=== PATIENT | male | born 1975 | race Two or more races ===

== ENCOUNTER 2024-12-27 18:20 | Emergency (ER) | payer MEDICAID, OTHER ==
[~2024-12-27] VITALS: Ht 160 cm; Wt 59.0 kg
--- NOTE | 2024-12-27 18:44 | ED.PDOC ---
Psychiatric HPI Comments 49-year-old male with a history of suicide ideation, diabetes, schizophrenia, and alcohol abuse was brought in by ambulance with a chief complaint of suicidal ideation. Patient notes being depressed for 2x months, and states he had a knife plan to use it on himself, but denies any homicidal ideation. Notes of minor auditory hallucinations at this time. Patient denies any pain, lacerations, or any other associated symptoms, modifiers at this time. Chief Complaint: Suicidal Time Seen by MD: 18:39 Reviewed Notes: Nurses Notes, Tower Operator Notes, Medications, Allergies Information Source: Patient, Emergency Med Personnel Mode of Arrival: EMS Severity of Pain: Mild Severity of Mental Status: Severe Severity of Symptoms: Mild Timing: Months Duration: Since onset Prehospital treatment: None Presents with: Depression, Anxiety, Unclear Thinking, Suicidal Ideation, Alcohol Intoxication Ingestion: None Circumstance: None Current substance abuse: Unknown Stressors: Work, Family, Relationships History of: Depression, Anxiety, Schizophrenia, Bipolar, Suicidal Attempt Quality: Hopelessness, Hallucinations Location: None Location of pain or injury: None Associated signs and symptoms: Depression, Hopeless, Anxiety, Hallucinations Vital Signs Vital Signs Date Time Temp Pulse Resp B/P (MAP) Pulse Ox O2 Delivery O2 Flow Rate FiO2 12/28/24 19:33 Room Air* 0 21 12/28/24 19:30 97.8 99 18 129/84 (99) 100 97.8 Physical Exam PHYSICAL EXAM: General: Awake, alert and oriented. No acute distress. Patient appears disheveled and unkempt Skin: Skin in warm, dry and intact without rashes or lesions. HEENT: The head is normocephalic and atraumatic. Conjunctivae are clear without exudates or hemorrhage. Sclera is non-icteric. Neck: Normal range of motion. No JVD. Cardiac: Regular rate Respiratory: No signs of respiratory distress. No Stridor. Extremities: Upper and lower extremities are atraumatic in appearance without de formity. Neurological: The patient is awake, alert and oriented to person, place, and time with normal speech. Speech is clear. There is no facial asymmetry. Psychiatric: Patient has depressed mood, suicidal ideation Review of Systems: REVIEW OF SYSTEMS: No fever, no chills, or fatigue HEENT: No sore throat, no earache, no congestion, no neck pain. Cardiac: No chest pain. No palpitations. Lungs: No shortness of breath, no cough. GI: No nausea, no vomiting, no diarrhea, no constipation, no abdominal pain : No dysuria, frequency, or urgency. No hematuria. Musculoskeletal: No joint pain , no joint swelling, no extremity edema. Skin: No rash, no itching. Neuro: No headache, no dizziness, no weakness Psychiatric: Suicidal ideation, auditory hallucinations Past Medical History PAST MEDICAL HISTORY: Depression, DM, Schizophrenia Surgical History: Denies all surgeries Family History Family History: Unknown Social History Smoker: Non-Smoker Alcohol: Heavy Drugs: Denies Drug Use Lives In: Home Was a procedure done? Was a procedure done?: No Psych Differential Dx Psych. Differential Dx: Anxiety, Bipolar Disorder, Depression, Hopeless, Panic Disorder, Schizoprenia, Suicidal OD Differential Dx: Alcohol Abuse, Anxiety, Bipolar Disorder, Depression, Drug Overdose, Encephalopathy, Hallucinations, Panic Disorder, Schizophrenia, Substance Abuse, Suicidal Attempt Suicidal Differential Dx: Alcohol Abuse, Anxiety, Bipolar Disorder, Depression, Schizoprenia, Substance Abuse Intoxication Differential Dx: Hallucinations, Dehydration, Depression, Encephal opathy, Intoxication, Medical Noncompliance, Schizophrenia, Substance Abuse Disorder X-Ray, Labs, Meds, VS Vital Signs Date Time Temp Pulse Resp B/P (MAP) Pulse Ox O2 Delivery O2 Flow Rate FiO2 12/28/24 19:33 Room Air* 0 21 12/28/24 19:30 97.8 99 18 129/84 (99) 100 97.8 12/28/24 14:26 94 16 131/88 12/28/24 14:25 94 16 131/88 (102) 100 12/28/24 11:17 83 16 116/80 12/28/24 11:03 97.3 83 16 116/80 (92) 100 97.3 12/28/24 09:39 Room Air* 0 21 12/27/24 21:47 91 18 97 Room Air* 0 21 12/27/24 21:47 98.6 91 18 103/57 (72) 97 98.6 12/27/24 18:25 98.8 114 18 131/81 98 98.8 Lab Test 12/28/24 12:25 12/27/24 21:43 12/27/24 19:05 Range/Units Urine Color Light-yellow Yellow Urine Clarity Clear Clear Urine pH 6.5 5.0-9.0 Urine Specific [place] 1.038 H 1.001-1.035 Urine Protein Negative Negative Urine Ketones Trace Negative Urine Blood Negative Negative /uL Urine Nitrite Negative Negative Urine Bilirubin Negative Negative Urine Urobilinogen 2 H Negative mg/dL Urine Leukocyte Esterase Negative Negative /uL Urine RBC <1 0 - 3 /hpf Urine Microscopic WBC 4 H 0-3 /HPF Urine Squamous Epithelial Cells None seen <5 /hpf Urine Bacteria None seen None Seen /hpf Urine Glucose 4+ H Normal mg/dL Urine Opiates Screen Neg NEGATIVE Urine Fentanyl Screen Neg NEGATIVE Urine Barbiturates Screen Neg NEGATIVE Urine Phencyclidine Screen Neg NEGATIVE Urine Amphetamines Screen Neg NEGATIVE Urine Benzodiazepines Screen Neg NEGATIVE Urine Cocaine Screen Neg NEGATIVE Urine Cannabinoids Screen Neg NEGATIVE POC Glucose 261 H 70-106 mg/dl White Blood Count 5.7 4.4-10.8 10^3/uL Red Blood Count 5.12 4.5-5.90 10^6/uL Hemoglobin 11.0 L 13.5-17.5 g/dL Hematocrit 35.7 L 41.0-53.0 % Mean Corpuscular Volume 69.7 L 80.0-100.0 fL Mean Corpuscular Hemoglobin 21.5 L 28.0-32.0 pg Mean Corpuscular Hemoglobin Concent 30.8 L 32.0-36.0 g/dL Red Cell Distribution Width 21.3 H 11.8-14.3 % Platelet Count 392 140-450 10^3/uL Mean Platelet Volume 7.6 6.9-10.8 fL Neutrophils (%) (Auto) 72.2 37.0-80.0 % Lymphocytes (%) (Auto) 19.0 10.0-50.0 % Monocytes (%) (Auto) 8.1 0.0-12.0 % Eosinophils (%) (Auto) 0.0 0.0-7.0 % Basophils (%) (Auto) 0.7 0.0-2.0 % Neutrophils # (Auto) 4.1 1.6-8.6 10 ^3/uL Lymphocytes # (Auto) 1.1 0.4-5.4 10 ^3/uL Monocytes # (Auto) 0.5 0-1.3 10 ^3/uL Eosinophils # (Auto) 0 0-0.8 10 ^3/uL Basophils # (Auto) 0 0-0.2 10 ^3/uL Nucleated Red Blood Cells 0.1 % Sodium Level 138 136-145 mmol/L Potassium Level 2.6 L 3.5-5.1 mmol/L Chloride Level 97 L 98-107 mmol/L Carbon Dioxide Level 23 20-31 mmol/L Anion Gap 18 H 5-15 Blood Urea Nitrogen 17 9-23 mg/dL Creatinine 1.23 0.700-1.30 mg/dL Glomerular Filtration Rate Calc 73 >90 mL/min BUN/Creatinine Ratio 13.8 10.0-20.0 Serum Glucose 290 H 74-106 mg/dL Calcium Level 8.7 8.7-10.4 mg/dL Plasma/Serum Blood Alcohol 363.4 H <10 mg/dL Time of 1ST Reevaluation: 19:10 Reevaluation 1ST: Unchanged Patient Education/Counseling: Diagnosis, Treatment, Need For Follow Up Family Education/Counseling: No Family Present Departure 1 Departure Time of Disposition: 20:52 Impression: Primary Impression: Depression Additional Impression: Suicidal ideation [facility] Condition: Serious Comments @[address] Kent , psychiatry recommendation is transfer for inpatient psych admission. Start olanzapine 5 mg b.i.d. and trazodone 50 mg q.h.s. Critical Care Note Critical Care Time?: No Stability Stability form required: No Heart Score Heart Score: Heart Score Response (Comments) Value History N/A 0 EKG N/A 0 Age N/A 0 Risk Factors N/A 0 Troponin N/A 0 Total 0 I personally scribed for SILVINA SEAY MD ([email or web address]) on 12/27/24 at 18:44. Electronically submitted by Deon Wilson ([email or web address]). SILVINA SEAY MD Dec 27, 2024 18:44
[2024-12-27 19:52] LABS: Hematocrit 35.7 % (41.0-53.0); Hemoglobin 11.0 g/dL (13.5-17.5); Mean Corpuscular Hemoglobin 21.5 pg (28.0-32.0); Mean Corpuscular Volume 69.7 fL (80.0-100.0); Nucleated Red Blood Cells % 0.1 %
[2024-12-27 20:01] LABS: Sodium 138 mmol/L (136-145)
[2024-12-27 20:02] LABS: Anion Gap 18 (5-15); Calcium 8.7 mg/dL (8.7-10.4); Carbon Dioxide 23 mmol/L (20-31)
[2024-12-27 20:07] LABS: BUN/Creatinine Ratio 13.8 (10.0-20.0); Blood Urea Nitrogen 17 mg/dL (9-23)
[2024-12-27 20:08] LABS: Chloride 97 mmol/L (98-107); Glucose 290 mg/dL (74-106); Potassium 2.6 mmol/L (3.5-5.1)
--- NOTE | 2024-12-27 20:50 | DVHINCON2 ---
Date of Service if different f: Dec 27, 2024 Time of Service: 20:31 Consult Consult Note PSYCHIATRY ED NEW CONSULT HPI: 49 yo pt with PPH of schizoaffective disorder and ETOH use disorder presents to ED BIBA for safety, psychiatric stabilization, and possible med initiation/optimization in setting of med noncompliance, depression, AH, and passive SI. Psychiatry consulted for safety evaluation and recommendations in context of current presentation Pt reports over past several weeks/months experiencing worsening depressed mood, hopelessness/helplessness, negative thoughts, loss of interest, decreased energy, poor sleep/appetite, low self-worth, amotivation, some decline in self-care and anxiety symptoms to include racing/intrusive thoughts, paranoia of being followed, vague NC/NT AH, feeling tensed, and irritability although some symptoms appear chronic in nature. Also intermittent SI that are worsening with plan to stab self with knife resulting in some interference with daily functioning. Also self medicating with recent increase in ETOH use. Identifies primary stress as unemployment, lack of meaningful relationships, limited support system, etc. Denies HI/VH/catatonic/perceptual disturbances Does not have active outpt MH services established at this time although has sought outpt MH services in past. Currently not on any psychotropic agents for past several months, prior psych med trials include olanzapine and trazodone Admits to daily ETOH use over past several months including recent increase in ETOH consumption, denies THC or IDU prior to admission. Some hx of ETOH dependency noted Single, one adult son with limited contact, unemployed, lives with roommates, limited support system noted (immediate family) Unknown trauma hx. Denies FH of psych hospitalizations, suicide attempts, or completed suicides No acute medical/chronic pain issues, hx of seizures/TBI, or recent head injuries, NKDA Denies hx of SIB/SA/PSG although prior psych hospitalizations for depression/psychosis, unknown last admission. Denies history of violence, aggression, or assaultive behaviors. Denies any legal problems. Does not have access to firearms MSE: General Appearance/Behavior: Alert/awake; appears stated age, fair grooming/hygiene; calm/polite and cooperative, intermittently tearful, fair eye contact, no PMA/PMR Speech: coherent, rrr Thought Process: L/L/GD Thought Content: Abnormal Thoughts and Perceptions: denies dissociative symptoms Homicidality / Violent Thoughts: adamantly denies HI Suicidality: +SI Hallucinations: +AH Delusions: +PI Obsessions /compulsions: None Judgment and Insight: fair/fair Mood & Affect: "depressed" with mood-congruent, somewhat restricted/appropriate Orientation: oriented x 3 Attention/Concentration: appears intact Cognition: grossly intact Assessment: 49 yo pt with PPH of schizoaffective disorder and ETOH use disorder presents to ED BIBA for safety, psychiatric stabilization, and possible med initiation/optimization in setting of med noncompliance, depression, AH, and passive SI Pt currently expressing some SI with moderate interference in daily functioning in setting of several recent acute life stressors (see hpi). Limited protective factors presently. Not on any psychotropics for past several months + recent increase in ETOH consumption may be contributing to current symptoms. No outpt MH services at present. Pt agrees to talk with staff instead of acting on any suicidal feelings while in ED. Pt medically cleared in ED Acute safety risk remains slightly elevated and is appropriate for inpatient psychiatric admission for further safety, psychiatric stabilization, and possible medication initiation/optimization. Pt willing to transfer to inpt psych facility voluntarily. Consider 5150 hold for DTS ONLY if needed for transfer or if no voluntary beds are available Primary Diagnosis: Schizoaffective disorder, depressive type. R/o MDD w/PF. ETOH use disorder, unspecified Recommend VOL transfer to inpt psych facility for higher level of care 1:1 sitter is recommended Maintain suicide/elopement precautions Recommend continuation of current outpt med regimen - olanzapine 5 mg bid and trazodone 50 mg qhs (first dose now) Defer any psychotropic med changes to accepting inpt psych facility Risks/benefits/alternative treatments discussed, informed consent provided by pt If patient later refuses voluntary hospitalization/ requests to be discharged from ED prior to transfer, please reconsult telepsych services to evaluate for 5150 hold Pt verbalized understanding and is receptive to above tx plan This case was discussed with ED nurse/provider and all parties in agreement with above tx plan Charlie Kent MD Plan discussed with: Patient CHARLIE KENT MD Dec 27, 2024 20:50
[2024-12-27 21:47] VITALS: PULSE 91; RESP 18; O2SAT 97
[2024-12-28] MEDS: OLANZapine 5 MG TAB PO ONE ×2 (06:06→21:50)
[2024-12-28] MEDS: SODIUM CHLORIDE 0.9% 2,000 ML IV ONE (06:24)
[2024-12-28] MEDS: ONDANSETRON HCL 4 MG/2 ML VIAL IV ONE (11:17)
[2024-12-28] MEDS: MORPHINE SULFATE INJ 2 MG/ml SYRG IV ONE (11:17)
[2024-12-28 12:39] LABS: Urine Protein, UAD Negative (Negative)
[2024-12-28 13:11] LABS: Amphetamine Screen, Urine Neg (NEGATIVE); Barbiturate Scree,Urine Neg (NEGATIVE); Benzodiazephine Screen, Urine Neg (NEGATIVE); Cocaine Screen, Urine Neg (NEGATIVE); Opiate Scree,Urine Neg (NEGATIVE)
[2024-12-28 13:12] LABS: Cannabinoid Screen, Urine Neg (NEGATIVE); Phencyclidine Screen, Urine Neg (NEGATIVE)
[2024-12-28] MEDS: LORazepam 2MG/ML-1ML VIAL IV ONE (15:51)
[2024-12-28 19:30] VITALS: BP 129/84; PULSE 99; RESP 18; TEMP 97.8; O2SAT 100
[2024-12-28] MEDS: KETOROLAC TROMETH 60MG/2ML VIAL IM ONE (21:50)
[2024-12-28] MEDS: ACETAMINOPHEN 325 MG TAB PO ONE (21:50)
== END 2024-12-29 08:20 | disposition left against medical advice (07) ==
LOC: ER 18:20 → EDBD 18:20 → ER 12-29 08:20
DX: R45.851 Suicidal ideations (principal); E11.9 Type 2 diabetes mellitus without complications; F10.129 Alcohol abuse with intoxication, unspecified; F41.9 Anxiety disorder, unspecified; Y90.9 Presence of alcohol in blood, level not specified
CPT/HCPCS: 36415; 80048; 80307; 80320; 81001; 82947; 85025; 96361; 96372; 96374; 96375; 99284; J1885; J2060; J2270; J2405; J7030; 82962